=== PATIENT | female | born 1990 | race Caucasian/White ===

== ENCOUNTER 2020-04-21 14:09 | Emergency (ER) | payer BC, OTHER ==
[2020-04-21 14:15] VITALS: TEMP 97.3
[2020-04-21] MEDS ORDERED: SODIUM CHLORIDE 0.9% 1,000 ML IV STA (14:39)
[2020-04-21] MEDS ORDERED: MAG HYDROX/AL HYDROX/SIMETH 30 ML, HYOSCYAMINE ELIXIR 10 ML, LIDOCAINE VISCOUS 2% 10 ML PO STA ×3 (14:39)
[2020-04-21] MEDS ORDERED: PANTOPRAZOLE 40 MG/10 ML VIAL IVP STA (14:39)
--- NOTE | 2020-04-21 15:17 | ED ---
General Adult HPI - General Chief complaint: Chest Pain Stated complaint: chest pain, shortness of breath Time Seen by Provider: 04/21/20 14:20 Source: patient Mode of arrival: ambulatory Limitations: no limitations - History of Present Illness Initial comments: Patient is a 29-year-old female presenting to the emergency department with multiple complaints. Patient states that today while she was working she experience some blurry vision followed by a slight headache. During this time patient also described an episode of chest tightness, shaking that she believes is from anxiety. Patient states this chest tightness did become somewhat painful. She said this episode lasted approximately one hour. Patient has also been experiencing epigastric discomfort for the past 3 weeks. She does have a history of ulcers. She denies any other abdominal surgeries. She states she has been having intermittent diarrhea as well as increased pain after she eats food. She has had a few episodes of vomiting over the past 3 weeks. She describes the pain as epigastric, slightly to the right upper quadrant pain. She denies being at this time, is on BCP. She denies any fever, chills, shortness of breath. She denies history of blood clots, recent medication changes. She has no further complaints at this time. Upon arrival to the ER, patient is slightly tachycardia at 110, rest of vitals are normal. - Related Data Home Medications Medication Instructions Recorded Confirmed Cetirizine HCl [Zyrtec] 10 mg PO DAILY 04/21/20 04/21/20 Cider Vinegar [Apple Cider Vinegar] 300 mg PO DAILY 04/21/20 04/21/20 Mat Fe 1.5-30 1 tab PO DAILY 04/21/20 04/21/20 Multivitamins, Thera [Multivitamin 1 tab PO DAILY 04/21/20 04/21/20 (formulary)] Previous Rx's Medication Instructions Recorded Omeprazole 40 mg PO DAILY 30 Days #30 04/21/20 capsule. Allergies Allergy/AdvReac Type Severity Reaction Status Date / Time No Known Allergies Allergy Verified 04/21/20 15:05 Review of Systems ROS Statement: Those systems with pertinent positive or pertinent negative responses have been documented in the HPI. ROS Other: All systems not noted in ROS Statement are negative. Past Medical History Past Medical History: GERD/Reflux History of Any Multi-Drug Resistant Organisms: None Reported Past Surgical History: Orthopedic Surgery Additional Past Surgical History / Comment(s): rt wrist Past Psychological History: Anxiety Smoking Status: Never smoker Past Alcohol Use History: Rare Past Drug Use History: None Reported General Exam - General Exam Comments Initial Comments: GENERAL: Patient is well-developed and well-nourished. Patient is nontoxic and in no acute distress. HEAD: Atraumatic, normocephalic. EYES: Pupils equal round and reactive to light, extraocular movements intact, sclera anicteric, conjunctiva are normal. Eyelids were unremarkable. ENT: TMs normal, nares patent, oropharynx clear without exudates. Moist mucous membranes. NECK: Normal range of motion, supple without lymphadenopathy or JVD. LUNGS: Unlabored respirations. Breath sounds clear to auscultation bilaterally and equal. No wheezes rales or rhonchi. HEART: Regular rate and rhythm without murmurs, rubs or gallops. ABDOMEN: Epigastric tenderness to palpation, mild right upper quadrant tenderness. Soft, normoactive bowel sounds. No guarding, no rebound. No masses appreciated. : Deferred MUSCULOSKELETAL: Normal extremities with adequate strength and normal range of motion, no pitting or edema. No clubbing or cyanosis. NEUROLOGICAL: Patient is alert and oriented x 3. Motor and sensory are also intact. Cranial nerves II through XII grossly intact. Symmetrical smile. Normal speech, normal gait. PSYCH: Normal mood, normal affect. SKIN: Warm, Dry, normal turgor, no rashes or lesions noted. Limitations: no limitations Course Vital Signs 04/21/20 04/21/20 14:10 18:00 Temperature 97.3 F L 97.3 F L Pulse Rate 110 H 95 Respiratory 20 16 Rate Blood Pressure 147/88 127/68 O2 Sat by Pulse 99 99 Oximetry EKG Findings - EKG Comments: EKG Findings:: Sinus tachycardia otherwise a normal ECG, no signs of acute ischemia. Ventricular rate 102, AR interval 134, QT 354. Medical Decision Making - Medical Decision Making Patient is a 29-year-old female here with multiple complaints including an episode of chest tightness, shortness of breath that lasted approximately one hour as well as 3 weeks of intermittent epigastric, right upper quadrant pain. Patient was slightly tachycardia upon arrival, rest of vital signs were normal. On exam patient had some epigastric, right upper quadrant tenderness, rest of exam is unremarkable, no neural deficits. Lab work shows no acute abnormalities except for slight elevation in liver enzymes. Lipase was normal, lactic acid was normal. At that time I did order an ultrasound of the gallbladder which revealed no significant findings, no evidence of acute cholecystitis. Patient troponin and d-dimer were also normal. Urine showed no evidence of infection. Patient was given some fluids, Protonix as well as a GI cocktail and reported improvement in her symptoms. She has had no further chest complaints during her ER stay. I discussed with patient that her chest discomfort could've been related to an anxiety and tach, patient agrees with this. I do feel like her epigastric pain could be related to her gallbladder or possible ulcer. She does have a history of an ulcer. I will start patient on omeprazole 40 mg daily and will have her follow up with GI. I recommended Tylenol or Motrin for her mild headache. We did discuss limiting her up close computer usage for 1-2 days. Patient is in agreement with this plan of care and she stable for discharge. Return parameters were discussed with the patient she verbalized understanding. Case discussed with Dr. Pizarro. - Lab Data Result diagrams: 04/21/20 15:14 04/21/20 15:14 Lab Results 04/21/20 04/21/20 04/21/20 Range/Units 15:08 15:08 15:14 WBC 7.9 (3.8-10.6) k/uL RBC 4.82 (3.80-5.40) m/uL Hgb 14.7 (11.4-16.0) gm/dL Hct 43.5 (34.0-46.0) % MCV 90.4 (80.0-100.0) fL MCH 30.6 (25.0-35.0) pg MCHC 33.8 (31.0-37.0) g/dL RDW 12.6 (11.5-15.5) % Plt Count 318 (150-450) k/uL Neutrophils % 64 % Lymphocytes % 23 % Monocytes % 5 % Eosinophils % 5 % Basophils % 1 % Neutrophils # 5.1 (1.3-7.7) k/uL Lymphocytes # 1.8 (1.0-4.8) k/uL Monocytes # 0.4 (0-1.0) k/uL Eosinophils # 0.4 (0-0.7) k/uL Basophils # 0.1 (0-0.2) k/uL D-Dimer 0.46 (<0.60) mg/L FEU Sodium (137-145) mmol/L Potassium (3.5-5.1) mmol/L Chloride (98-107) mmol/L Carbon Dioxide (22-30) mmol/L Anion Gap mmol/L BUN (7-17) mg/dL Creatinine (0.52-1.04) mg/dL Est GFR (CKD-EPI)AfAm (>60 ml/min/1.73 sqM) Est GFR (CKD-EPI)NonAf (>60 ml/min/1.73 sqM) Glucose (74-99) mg/dL Plasma Lactic Acid Ga (0.7-2.0) mmol/L Calcium (8.4-10.2) mg/dL Total Bilirubin (0.2-1.3) mg/dL AST (14-36) U/L ALT (4-34) U/L Alkaline Phosphatase (38-126) U/L Troponin I <0.012 (0.000-0.034) ng/mL Total Protein (6.3-8.2) g/dL Albumin (3.5-5.0) g/dL Lipase (23-300) U/L Urine Color Urine Appearance (Clear) Urine pH (5.0-8.0) Ur Specific [place] (1.001-1.035) Urine Protein (Negative) Urine Glucose (UA) (Negative) Urine Ketones (Negative) Urine Blood (Negative) Urine Nitrite (Negative) Urine Bilirubin (Negative) Urine Urobilinogen (<2.0) mg/dL Ur Leukocyte Esterase (Negative) Urine RBC (0-5) /hpf Urine WBC (0-5) /hpf Ur Squamous Epith Cells (0-4) /hpf Urine Bacteria (None) /hpf Urine Mucus (None) /hpf Urine HCG, Qual (Not Detectd) 04/21/20 04/21/20 04/21/20 Range/Units 15:14 15:14 15:14 WBC (3.8-10.6) k/uL RBC (3.80-5.40) m/uL Hgb (11.4-16.0) gm/dL Hct (34.0-46.0) % MCV (80.0-100.0) fL MCH (25.0-35.0) pg MCHC (31.0-37.0) g/dL RDW (11.5-15.5) % Plt Count (150-450) k/uL Neutrophils % % Lymphocytes % % Monocytes % % Eosinophils % % Basophils % % Neutrophils # (1.3-7.7) k/uL Lymphocytes # (1.0-4.8) k/uL Monocytes # (0-1.0) k/uL Eosinophils # (0-0.7) k/uL Basophils # (0-0.2) k/uL D-Dimer (<0.60) mg/L FEU Sodium 136 L (137-145) mmol/L Potassium 4.0 (3.5-5.1) mmol/L Chloride 102 (98-107) mmol/L Carbon Dioxide 25 (22-30) mmol/L Anion Gap 9 mmol/L BUN 14 (7-17) mg/dL Creatinine 0.85 (0.52-1.04) mg/dL Est GFR (CKD-EPI)AfAm >90 (>60 ml/min/1.73 sqM) Est GFR (CKD-EPI)NonAf >90 (>60 ml/min/1.73 sqM) Glucose 112 H (74-99) mg/dL Plasma Lactic Acid Ga (0.7-2.0) mmol/L Calcium 10.0 (8.4-10.2) mg/dL Total Bilirubin 0.6 (0.2-1.3) mg/dL AST 49 H (14-36) U/L ALT 71 H (4-34) U/L Alkaline Phosphatase 84 (38-126) U/L Troponin I (0.000-0.034) ng/mL Total Protein 7.2 (6.3-8.2) g/dL Albumin 4.4 (3.5-5.0) g/dL Lipase 138 (23-300) U/L Urine Color Yellow Urine Appearance Cloudy H (Clear) Urine pH 5.5 (5.0-8.0) Ur Specific [place] 1.029 (1.001-1.035) Urine Protein Negative (Negative) Urine Glucose (UA) Negative (Negative) Urine Ketones Trace H (Negative) Urine Blood Negative (Negative) Urine Nitrite Negative (Negative) Urine Bilirubin Negative (Negative) Urine Urobilinogen <2.0 (<2.0) mg/dL Ur Leukocyte Esterase Negative (Negative) Urine RBC 1 (0-5) /hpf Urine WBC 2 (0-5) /hpf Ur Squamous Epith Cells 5 H (0-4) /hpf Urine Bacteria Rare H (None) /hpf Urine Mucus Many H (None) /hpf Urine HCG, Qual Not Detected (Not Detectd) 04/21/20 Range/Units 15:14 WBC (3.8-10.6) k/uL RBC (3.80-5.40) m/uL Hgb (11.4-16.0) gm/dL Hct (34.0-46.0) % MCV (80.0-100.0) fL MCH (25.0-35.0) pg MCHC (31.0-37.0) g/dL RDW (11.5-15.5) % Plt Count (150-450) k/uL Neutrophils % % Lymphocytes % % Monocytes % % Eosinophils % % Basophils % % Neutrophils # (1.3-7.7) k/uL Lymphocytes # (1.0-4.8) k/uL Monocytes # (0-1.0) k/uL Eosinophils # (0-0.7) k/uL Basophils # (0-0.2) k/uL D-Dimer (<0.60) mg/L FEU Sodium (137-145) mmol/L Potassium (3.5-5.1) mmol/L Chloride (98-107) mmol/L Carbon Dioxide (22-30) mmol/L Anion Gap mmol/L BUN (7-17) mg/dL Creatinine (0.52-1.04) mg/dL Est GFR (CKD-EPI)AfAm (>60 ml/min/1.73 sqM) Est GFR (CKD-EPI)NonAf (>60 ml/min/1.73 sqM) Glucose (74-99) mg/dL Plasma Lactic Acid Ga 1.0 (0.7-2.0) mmol/L Calcium (8.4-10.2) mg/dL Total Bilirubin (0.2-1.3) mg/dL AST (14-36) U/L ALT (4-34) U/L Alkaline Phosphatase (38-126) U/L Troponin I (0.000-0.034) ng/mL Total Protein (6.3-8.2) g/dL Albumin (3.5-5.0) g/dL Lipase (23-300) U/L Urine Color Urine Appearance (Clear) Urine pH (5.0-8.0) Ur Specific [place] (1.001-1.035) Urine Protein (Negative) Urine Glucose (UA) (Negative) Urine Ketones (Negative) Urine Blood (Negative) Urine Nitrite (Negative) Urine Bilirubin (Negative) Urine Urobilinogen (<2.0) mg/dL Ur Leukocyte Esterase (Negative) Urine RBC (0-5) /hpf Urine WBC (0-5) /hpf Ur Squamous Epith Cells (0-4) /hpf Urine Bacteria (None) /hpf Urine Mucus (None) /hpf Urine HCG, Qual (Not Detectd) Disposition Clinical Impression: Anxiety, Epigastric abdominal pain, GERD (gastroesophageal reflux disease) Disposition: HOME SELF-CARE Condition: Stable Instructions (If sedation given, give patient instructions): Gastritis (ED) Additional Instructions: Please return to the Emergency Department if symptoms worsen or any other concerns. Recommend taking omeprazole daily for 2-4 weeks. Follow-up with PCP and/or GI specialist. Prescriptions: Omeprazole 40 mg PO DAILY 30 Days #30 capsule.dr Is patient prescribed a controlled substance at d/c from ED?: No Referrals: Lucrecia Titus MD [Primary Care Provider] - 1-2 days Hollie Culver MD [STAFF PHYSICIAN] - 1-2 days
[2020-04-21 15:29] LABS: Basophils # (A) 0.1 k/uL (0-0.2); Basophils % (A) 1 %; Eosinophils # (A) 0.4 k/uL (0-0.7); Eosinophils % (A) 5 %; HCT 43.5 % (34.0-46.0); HGB 14.7 gm/dL (11.4-16.0); Lymphocytes # (A) 1.8 k/uL (1.0-4.8); Lymphocytes % (A) 23 %; MCH 30.6 pg (25.0-35.0); MCHC 33.8 g/dL (31.0-37.0); MCV 90.4 fL (80.0-100.0); Mean Platelet Volume 7.5; Monocytes # (A) 0.4 k/uL (0-1.0); Monocytes % (A) 5 %; Neutrophils # (A) 5.1 k/uL (1.3-7.7); Neutrophils % (A) 64 %; Platelet Count 318 k/uL (150-450); RBC 4.82 m/uL (3.80-5.40); RDW 12.6 % (11.5-15.5); WBC 7.9 k/uL (3.8-10.6)
--- NOTE | 2020-04-21 15:37 | XR ---
EXAMINATION TYPE: XR chest 2V DATE OF EXAM: 04/21/2020 COMPARISON: NONE HISTORY: Intermittent chest pain and heaviness. TECHNIQUE: Frontal and lateral views of the chest are obtained. FINDINGS: There is no focal air space opacity, pleural effusion, or pneumothorax seen. The cardiac silhouette size is within normal limits. The osseous structures are intact. IMPRESSION: No acute cardiopulmonary process.
[2020-04-21 15:45] LABS: ALT 71 U/L (4-34); AST 49 U/L (14-36); African American GFR (CKD) >90 (>60 ml/min/1.73 sqM); Albumin 4.4 g/dL (3.5-5.0); Alkaline Phosphatase 84 U/L (38-126); Anion Gap 9 mmol/L; Blood Urea Nitrogen 14 mg/dL (7-17); Carbon Dioxide 25 mmol/L (22-30); Chloride 102 mmol/L (98-107); Glucose 112 mg/dL (74-99); Non-African American GFR(CKD) >90 (>60 ml/min/1.73 sqM); Sodium 136 mmol/L (137-145); Total Bilirubin 0.6 mg/dL (0.2-1.3); Total Protein 7.2 g/dL (6.3-8.2)
[2020-04-21 15:47] LABS: Appearance,Urine Cloudy (Clear); Bacteria,Urine Rare /hpf; Bilirubin,Urine Negative (Negative); Blood,Urine Negative (Negative); Color,Urine Yellow; Glucose,Urine (UA) Negative (Negative); Ketones,Urine Trace (Negative); Leukocyte Esterase,Urine Negative (Negative); Mucus,Urine Many /hpf; Nitrite,Urine Negative (Negative); PH, Urine 5.5 (5.0-8.0); Protein,Urine Negative (Negative); RBC,Urine 1 /hpf (0-5); Specific Gravity,Urine 1.029 (1.001-1.035); Squamous Epithelial Cell,Urine 5 /hpf (0-4); Urobilinogen,Urine <2.0 mg/dL (<2.0); WBC,Urine 2 /hpf (0-5)
--- NOTE | 2020-04-21 17:00 | US ---
EXAMINATION TYPE: US gallbladder DATE OF EXAM: 04/21/2020 COMPARISON: NONE CLINICAL HISTORY: epigastric. RUQ pain. abd pain EXAM MEASUREMENTS: Liver Length: 13.6 cm Gallbladder Wall: 0.3 cm CBD: 0.5 cm Right Kidney: 10.3 x 4.4 x 4.1 cm Note: Patient ate lunch. Pancreas: wnl Liver: wnl Gallbladder: wall appears borderline thick but patient NPO 4hrs. Evidence for sonographic Gonzalez's sign: no CBD: wnl Right Kidney: wnl IMPRESSION: No acute sonographic process.
[2020-04-21 18:00] VITALS: BP 127/68; PULSE 95; RESP 16
== END 2020-04-21 18:19 | disposition home or self-care (01) ==
LOC: EC 14:09
DX: K21.9 Gastro-esophageal reflux disease without esophagitis (principal); F41.9 Anxiety disorder, unspecified; R74.8 Abnormal levels of other serum enzymes; R07.89 Other chest pain; R06.02 Shortness of breath; R10.11 Right upper quadrant pain; R19.7 Diarrhea, unspecified; R11.10 Vomiting, unspecified; R25.1 Tremor, unspecified; R51 Headache; Z79.899 Other long term (current) drug therapy; Z79.3 Long term (current) use of hormonal contraceptives
CPT/HCPCS: 36415; 93005; 85379; 80053; 83605; 83690; 84484; 85025; 81001; 81025; 71046; 76705; 96374; 96361; 99285; C9113

== ENCOUNTER 2022-08-29 09:03 | Day surgery (SDC) | payer BC ==
[2022-08-24 12:19] VITALS: BMI 41.1
[~2022-08-29 09:03] MED LIST: ACETAMINOPHEN TAB 500 MG TAB PO PRN; DEXAMETHASONE SOD PHOSPHATE 4 MG/ML 1 ML VIAL IV ONE; HEPARIN SODIUM,PORCINE/PF 5,000 UNIT/0.5 ML SYRINGE SQ PRN; HYDROmorphone 0.5 MG/0.5 ML SYRINGE IVP PRN; LACTATED RINGERS 1,000 ML IV SCH; LIDOCAINE 1% (10MG/ML) FOR IV START INTRADERMA PRN; MIDAZOLAM 2 MG/2 ML VIAL IV PRN; ONDANSETRON 4 MG/2 ML VIAL IVP ONE
--- NOTE | 2022-08-29 09:45 | P.GSHP ---
History of Present Illness H&P Date: 08/29/22 Chief Complaint: Right upper quadrant pain [id number] female who presents today for laparoscopically cholecystectomy. Patient's liquids were quadrant pain. Her recent ultrasound shows and the gallbladder consistent with chronic cholecystitis. Past Medical History Past Medical History: GERD/Reflux Additional Past Medical History / Comment(s): Hx Asthma as a child, Hx stomach ulcers ., gall bladder pain and diarrhea. History of Any Multi-Drug Resistant Organisms: None Reported Past Surgical History: Orthopedic Surgery Additional Past Surgical History / Comment(s): rt wrist surgery with hardware and removal, egd. Past Anesthesia/Blood Transfusion Reactions: Motion Sickness Additional Past Anesthesia/Blood Transfusion Reaction / Comment(s): "Woke up too early." Past Psychological History: No Psychological Hx Reported Smoking Status: Never smoker Past Alcohol Use History: Occasional Past Drug Use History: None Reported - Past Family History Mother Family Medical History: No Reported History Medications and Allergies Home Medications Medication Instructions Recorded Confirmed Type Cetirizine HCl [Zyrtec] 10 mg PO DAILY 04/21/20 08/29/22 History Drospirenone [Slynd] 4 mg PO QAM 08/24/22 08/29/22 History Allergies Allergy/AdvReac Type Severity Reaction Status Date / Time cat dander Allergy Unknown Unknown Verified 08/29/22 09:30 bacitracin Allergy Rash/Hives Verified 08/29/22 09:30 [From Neosporin ([id number])] neomycin Allergy Rash/Hives Verified 08/29/22 09:30 [From Neosporin ([id number])] polymyxin B Allergy Rash/Hives Verified 08/29/22 09:30 [From Neosporin ([id number])] adhesive AdvReac Unknown rash, Verified 08/29/22 09:30 tears skin Surgical - Exam Vital Signs Temp Pulse Resp BP Pulse Ox 98.3 F 108 H 18 123/70 98 08/29/22 09:36 08/29/22 09:36 08/29/22 09:36 08/29/22 09:36 08/29/22 09:36 - General well developed, well nourished, no distress - Eyes PERRL - ENT normal pinna - Neck no masses - Respiratory normal expansion - Cardiovascular Rhythm: regular - Abdomen Abdomen: soft, non tender Assessment and Plan Assessment: Right upper quadrant pain Chronic cholecystitis We'll perform laparoscopic cholecystectomy
[2022-08-29] MEDS ORDERED: SCOPOLAMINE 1 MG/72 HR PATCH TRANSDERM ONE (09:50)
[2022-08-29] MEDS ORDERED: HYDROmorphone (PF) 1 MG/ML ONE (09:55)
[2022-08-29] MEDS ORDERED: ROCURONIUM 10 MG/ML (5 ML VIAL) IV ONE (09:55)
[2022-08-29] MEDS ORDERED: PROPOFOL 10 MG/ML 20 ML VIAL IV ONE (09:55)
[2022-08-29] MEDS ORDERED: MIDAZOLAM 2 MG/2 ML VIAL ONE (09:55)
[2022-08-29] MEDS ORDERED: NEOSTIGMINE 1 MG/ML 10 ML VIAL ONE (09:55)
[2022-08-29] MEDS ORDERED: LIDOCAINE 2% INJ 20 MG/ML (2 ML VIAL) ONE (09:55)
[2022-08-29] MEDS ORDERED: fentaNYL (PF) 50 MCG/ML 2 ML AMP ONE (09:55)
[2022-08-29] MEDS ORDERED: SUCCINYLCHOLINE CHLORIDE 200 MG/10 ML VIAL IV ONE (09:55)
[2022-08-29] MEDS ORDERED: GLYCOPYRROLATE 0.2 MG/ML 2 ML VIAL ONE (09:55)
[2022-08-29] MEDS ORDERED: KETOROLAC 15 MG/ML 1 ML VIAL ONE (09:55)
[2022-08-29] MEDS ORDERED: BUPIVACAIN-EPI 0.25%-1:200,000 30 ML VIAL SQ ONE (10:15)
--- NOTE | 2022-08-29 10:41 | P.OP ---
Date of Procedure: 08/29/22 Preoperative Diagnosis: Chronic cholecystitis Postoperative Diagnosis: Chronic cholecystitis Procedure(s) Performed: Laparoscopic cholecystectomy Anesthesia: ELSIE Surgeon: Naman Rees Estimated Blood Loss (ml): 5 Pathology: other (Gallbladder) Condition: stable Disposition: PACU Description of Procedure: The patient was placed on the operating table. The patient received a general endotracheal tube anesthesia. The patients abdomen was prepped and draped in the usual sterile fashion. Through an infraumbilical stab incision, the fascia of the anterior abdominal wall was grasped with a pair of Kochers and then the Veress needle was placed in the peritoneal cavity. Position of the Veress needle was confirmed with positive drop test. The abdomen was then insufflated. After adequate insufflation, the 10 mm trocar was placed in the peritoneal cavity. Following this the laparoscope was placed in the peritoneal cavity. The patient was placed in the head-up, right side up position and then a 5 mm trocar was placed in the right lateral and right subcostal position under direct visualization. A 8 mm trocar was placed in the epigastric position. The gallbladder was grasped in the fundus and infundibulum. Traction on the gallbladder was placed in the lateral and the cephalad positions. The triangle of Calot was visualized.. The cystic duct was bluntly dissected until the union of the cystic duct and common bile duct was seen. A critical view of safety was achieved. The cystic duct was then divided and sealed with the Harmonic scissors. A PDS Endoloop was then placed throughout the cystic duct stump. The cystic artery divided and sealed with the Harmonic scissors. The gallbladder was then removed from the liver bed using Harmonic scissors. The gallbladder was then extracted through the epigastric port site. Operative field was checked for any bleeding spots and Harmonic scissors was used to coagulate the liver bed. The abdomen was irrigated. The trocars were removed. The skin was closed using interrupted 3-0 Vicryl suture. Dermabond dressing were applied. The patient tolerated the procedure well.
[2022-08-29 11:14] VITALS: TEMP 97.3
[2022-08-29] MEDS ORDERED: LACTATED RINGERS 1,000 ML IV ONE (11:15)
[2022-08-29 13:40] VITALS: RESP 18
[2022-08-29 14:36] VITALS: BP 101/71; PULSE 70
== END 2022-08-29 14:37 | disposition home or self-care (01) ==
LOC: OR 09:03
PROVIDERS: ATTEND Surgery
DX: K81.1 Chronic cholecystitis (principal); K21.9 Gastro-esophageal reflux disease without esophagitis; F10.90 Alcohol use, unspecified, uncomplicated; F17.200 Nicotine dependence, unspecified, uncomplicated; Z98.890 Other specified postprocedural states; Z87.09 Personal history of other diseases of the respiratory system; Z87.11 Personal history of peptic ulcer disease; T75.3XXD Motion sickness, subsequent encounter; Z79.899 Other long term (current) drug therapy; Z88.1 Allergy status to other antibiotic agents; Z91.048 Other nonmedicinal substance allergy status
CPT/HCPCS: 47562; 81025; J2250; J0330; J1100; J2710; J0690; J2405; J3010; J1170 ×2; J1885; J2704; J1790; J1644; J2001; 88304

== ENCOUNTER 2023-01-08 08:52 | Observation (INO) | payer BC ==
[2023-01-08] MEDS ORDERED: ACETAMINOPHEN TAB 500 MG TAB PO STA (09:43)
[2023-01-08] MEDS ORDERED: IBUPROFEN 600 MG TAB PO STA (09:43)
[2023-01-08] MEDS ORDERED: SODIUM CHLORIDE 0.9% 1,000 ML IV ONE (09:48)
--- NOTE | 2023-01-08 09:48 | ED ---
General Adult HPI - General Chief complaint: Arrhythmia/Palpitations Stated complaint: LIZBETH chest pain Time Seen by Provider: 01/08/23 09:15 Source: patient, RN notes reviewed, old records reviewed Mode of arrival: ambulatory Limitations: no limitations - History of Present Illness Initial comments: This is a 32-year-old female who presents emergency Department complaining that she woke up about 3 AM with some pressure in her chest which was worse with deep breathing. Patient states she had the chills but she is no longer chill. Patient states she has an occasional cough but nothing significant. Patient states she doesn't feel short of breath just feels like she has to take a deep breath. Patient also has a mild headache. Patient denies any abdominal pain patient denies nausea vomiting. Patient denies any swelling to the legs or calf tenderness. Patient states she is on control. - Related Data Home Medications Medication Instructions Recorded Confirmed Cetirizine HCl [Zyrtec] 10 mg PO DAILY 04/21/20 01/08/23 norethindrone-e.estradioL-iron 1 tab PO DAILY 01/08/23 01/08/23 [Mat Fe 1.5-30 Tablet] Allergies Allergy/AdvReac Type Severity Reaction Status Date / Time cat dander Allergy Unknown Unknown Verified 01/08/23 09:48 bacitracin Allergy Rash/Hives Verified 01/08/23 09:48 [From Neosporin ([id number])] neomycin Allergy Rash/Hives Verified 01/08/23 09:48 [From Neosporin ([id number])] polymyxin B Allergy Rash/Hives Verified 01/08/23 09:48 [From Neosporin ([id number])] adhesive AdvReac Unknown rash, Verified 01/08/23 09:48 tears skin Review of Systems ROS Statement: Those systems with pertinent positive or pertinent negative responses have been documented in the HPI. ROS Other: All systems not noted in ROS Statement are negative. Past Medical History Past Medical History: GERD/Reflux Additional Past Medical History / Comment(s): Hx Asthma as a child, Hx stomach ulcers ., gall bladder pain and diarrhea. History of Any Multi-Drug Resistant Organisms: None Reported Past Surgical History: Cholecystectomy, Orthopedic Surgery Additional Past Surgical History / Comment(s): rt wrist surgery with hardware and removal, egd. Past Anesthesia/Blood Transfusion Reactions: Motion Sickness Additional Past Anesthesia/Blood Transfusion Reaction / Comment(s): "Woke up too early." Past Psychological History: No Psychological Hx Reported Smoking Status: Never smoker Past Alcohol Use History: Occasional Past Drug Use History: None Reported - Past Family History Mother Family Medical History: No Reported History General Exam - General Exam Comments Initial Comments: GENERAL: Patient is well-developed and well-nourished. Patient is nontoxic and well- hydrated and is in no acute distress. Patient felt warm temp orally was 99.9 ENT: Neck is soft and supple. No significant lymphadenopathy is noted. Oropharynx is clear. Moist mucous membranes. Neck has full range of motion without eliciting any pain. EYES: The sclera were anicteric and conjunctiva were pink and moist. Extraocular movements were intact and pupils were equal round and reactive to light. Eyelids were unremarkable. PULMONARY: Unlabored respirations. Good breath sounds bilaterally. No audible rales rhonchi or wheezing was noted. CARDIOVASCULAR: Patient is tachycardic at about 125 beats a minute ABDOMEN: Soft and nontender with normal bowel sounds. SKIN: Skin is clear with no lesions or rashes and otherwise unremarkable. NEUROLOGIC: Patient is alert and oriented x3. Cranial nerves II through XII are grossly intact. Motor and sensory are also intact. Normal speech, volume and content. Symmetrical smile. MUSCULOSKELETAL: Normal extremities with adequate strength and full range of motion. No lower extremity swelling or edema. No calf tenderness. LYMPHATICS: No significant lymphadenopathy is noted PSYCHIATRIC: Normal psychiatric evaluation. Limitations: no limitations Course Vital Signs 01/08/23 01/08/23 01/08/23 08:59 10:00 12:16 Temperature 98.3 F 98.3 F Pulse Rate 140 H 123 H 101 H Respiratory 18 18 18 Rate Blood Pressure 123/84 114/98 117/75 O2 Sat by Pulse 98 97 97 Oximetry 01/08/23 01/08/23 13:16 13:17 Temperature Pulse Rate 133 H 105 H Respiratory Rate Blood Pressure O2 Sat by Pulse 97 Oximetry Medical Decision Making - Medical Decision Making EKG as interpreted by myself shows sinus tachycardia at 126 bpm IA interval 144 QRS is 84 QT interval 360 QTC is 391. Patient's EKG shows no ST segment elevation or depression. Was pt. sent in by a medical professional or institution (, PA, IAP DISPLAYS ANALYST, urgent care, hospital, or senior care...) When possible be specific @ -No Did you speak to anyone other than the patient for history (EMS, parent, family, police, friend...)? What history was obtained from this source @ -No Did you review nursing and triage notes (agree or disagree)? Why? @ -I reviewed and agree with nursing and triage notes Were old charts reviewed (outside hosp., previous admission, EMS record, old EKG, old radiological studies, urgent care reports/EKG's, senior care records)? Report findings @ -No old charts were reviewed Differential Diagnosis (chest pain, altered mental status, abdominal pain women, abdominal pain men, vaginal bleeding, weakness, fever, dyspnea, syncope, headache, dizziness, GI bleed, back pain, seizure, CVA, palpatations, mental health, musculoskeletal)? @ -Differential Palpitations Ventricular arrhythmias, atrial arrhythmias, myocardial infarction, anemia, thyrotoxicosis, electrolyte imbalance, hypokalemia, pulmonary embolism, pulmonary disease, drugs, alcohol, anxiety, stress.... This is not meant to be an all-inclusive list. EKG interpreted by me (3pts min.). @ -As above X-rays interpreted by me (1pt min.). @ -Chest x-ray was interpreted by myself shows no acute abnormality. CT interpreted by me (1pt min.). @ -CT of the chest was interpreted by myself shows no obvious PE U/S interpreted by me (1pt. min.). @ -None done What testing was considered but not performed or refused? (CT, X-rays, U/S, labs)? Why? @ -None What meds were considered but not given or refused? Why? @ -None Did you discuss the management of the patient with other professionals (professionals i.e. , PA, IAP DISPLAYS ANALYST, lab, RT, psych nurse, delinquency prevention social worker, radiographer mammographer, teacher, air crew officer, case picker)? Give summary @ -Or he agreed to admit the patient admitted the patient wrote admitting orders Was smoking cessation discussed for >3mins.? @ -No Was critical care preformed (if so, how long)? @ -No Were there social determinants of health that impacted care today? How? (Homelessness, low income, unemployed, alcoholism, drug addiction, transportation, low edu. Level, literacy, decrease access to med. care, group home, rehab)? @ -No Was there de-escalation of care discussed even if they declined (Discuss DNR or withdrawal of care, Hospice)? DNR status @ -No What co-morbidities impacted this encounter? (DM, HTN, Smoking, COPD, CAD, Can cer, CVA, ARF, Chemo, Hep., AIDS, mental health diagnosis, sleep apnea, morbid obesity)? @ -None Was patient admitted / discharged? Hospital course, mention meds given and route, prescriptions, significant lab abnormalities, going to OR and other pertinent info. @ -Patient had a CAT scan and chest x-ray showed no acute abnormality. Patient had elevated white count but no source of infection. Patient remained tachycardic even after her temperature came down back to normal. Patient got up and ambulate down the swann and back and heart rate was 135 beats a minute. Patient continued to feel some chest discomfort I spoke with Dr. Orantes he agreed to admit the patient admitted the patient I consult cardiology Undiagnosed new problem with uncertain prognosis? @ -No Drug Therapy requiring intensive monitoring for toxicity (Heparin, Nitro, Insulin, Cardizem)? @ -No Were any procedures done? @ -No Diagnosis/symptom? @ -Tachycardia Acute, or Chronic, or Acute on Chronic? @ -Acute Uncomplicated (without systemic symptoms) or Complicated (systemic symptoms)? @ -Complicated Side effects of treatment? @ -No Exacerbation, Progression, or Severe Exacerbation? @ -No Poses a threat to life or bodily function? How? (Chest pain, [place], [place], pneumonia, PE, COPD, DKA, ARF, appy, cholecystitis, CVA, Diverticulitis, Homicidal, Suicidal, threat to staff... and all critical care pts) @ -This could lead to poor perfusion and eventually end organ dysfunction - Lab Data Result diagrams: 01/08/23 10:17 01/08/23 10:17 Lab Results 01/08/23 01/08/23 01/08/23 Range/Units 10:17 10:17 10:17 WBC 16.7 H (3.8-10.6) k/uL RBC 4.74 (3.80-5.40) m/uL Hgb 14.6 (11.4-16.0) gm/dL Hct 44.2 (34.0-46.0) % MCV 93.2 (80.0-100.0) fL MCH 30.8 (25.0-35.0) pg MCHC 33.0 (31.0-37.0) g/dL RDW 12.8 (11.5-15.5) % Plt Count 286 (150-450) k/uL MPV 8.1 Neutrophils % 89 % Lymphocytes % 6 % Monocytes % 4 % Eosinophils % 1 % Basophils % 0 % Neutrophils # 14.9 H (1.3-7.7) k/uL Lymphocytes # 1.0 (1.0-4.8) k/uL Monocytes # 0.6 (0-1.0) k/uL Eosinophils # 0.1 (0-0.7) k/uL Basophils # 0.0 (0-0.2) k/uL PT 9.3 (9.0-12.0) sec INR 0.9 (<1.2) APTT 20.8 L (22.0-30.0) sec D-Dimer 1.25 H (<0.60) mg/L FEU Sodium 137 (137-145) mmol/L Potassium 4.0 (3.5-5.1) mmol/L Chloride 103 (98-107) mmol/L Carbon Dioxide 23 (22-30) mmol/L Anion Gap 11 mmol/L BUN 13 (7-17) mg/dL Creatinine 0.84 (0.52-1.04) mg/dL Est GFR (CKD-EPI)AfAm >90 (>60 ml/min/1.73 sqM) Est GFR (CKD-EPI)NonAf >90 (>60 ml/min/1.73 sqM) Glucose 102 H (74-99) mg/dL Calcium 9.0 (8.4-10.2) mg/dL Magnesium 1.8 (1.6-2.3) mg/dL Total Bilirubin 1.0 (0.2-1.3) mg/dL AST 27 (14-36) U/L ALT 29 (4-34) U/L Alkaline Phosphatase 69 (38-126) U/L Troponin I (0.000-0.034) ng/mL Total Protein 7.0 (6.3-8.2) g/dL Albumin 4.2 (3.5-5.0) g/dL TSH 1.520 (0.465-4.680) mIU/L HCG, Qual Not Detected Influenza Type A (PCR) (Not Detectd) Influenza Type B (PCR) (Not Detectd) RSV (PCR) (Not Detectd) SARS-CoV-2 (PCR) (Not Detectd) 01/08/23 01/08/23 Range/Units 10:17 10:17 WBC (3.8-10.6) k/uL RBC (3.80-5.40) m/uL Hgb (11.4-16.0) gm/dL Hct (34.0-46.0) % MCV (80.0-100.0) fL MCH (25.0-35.0) pg MCHC (31.0-37.0) g/dL RDW (11.5-15.5) % Plt Count (150-450) k/uL MPV Neutrophils % % Lymphocytes % % Monocytes % % Eosinophils % % Basophils % % Neutrophils # (1.3-7.7) k/uL Lymphocytes # (1.0-4.8) k/uL Monocytes # (0-1.0) k/uL Eosinophils # (0-0.7) k/uL Basophils # (0-0.2) k/uL PT (9.0-12.0) sec INR (<1.2) APTT (22.0-30.0) sec D-Dimer (<0.60) mg/L FEU Sodium (137-145) mmol/L Potassium (3.5-5.1) mmol/L Chloride (98-107) mmol/L Carbon Dioxide (22-30) mmol/L Anion Gap mmol/L BUN (7-17) mg/dL Creatinine (0.52-1.04) mg/dL Est GFR (CKD-EPI)AfAm (>60 ml/min/1.73 sqM) Est GFR (CKD-EPI)NonAf (>60 ml/min/1.73 sqM) Glucose (74-99) mg/dL Calcium (8.4-10.2) mg/dL Magnesium (1.6-2.3) mg/dL Total Bilirubin (0.2-1.3) mg/dL AST (14-36) U/L ALT (4-34) U/L Alkaline Phosphatase (38-126) U/L Troponin I <0.012 (0.000-0.034) ng/mL Total Protein (6.3-8.2) g/dL Albumin (3.5-5.0) g/dL TSH (0.465-4.680) mIU/L HCG, Qual Influenza Type A (PCR) Not Detected (Not Detectd) Influenza Type B (PCR) Not Detected (Not Detectd) RSV (PCR) Not Detected (Not Detectd) SARS-CoV-2 (PCR) Not Detected (Not Detectd) Disposition Clinical Impression: Tachycardia Disposition: ADMITTED IP TO THIS HOSP Referrals: Lucrecia Titus MD [Primary Care Provider] - 1-2 days Time of Disposition: 14:07
--- NOTE | 2023-01-08 10:23 | XR ---
EXAMINATION TYPE: XR chest 2V DATE OF EXAM: 01/08/2023 COMPARISON: 04/21/2020 TECHNIQUE: PA and lateral views submitted. HISTORY: Chest pain FINDINGS: The lungs are clear and there is no pneumothorax, pleural effusion, or focal pneumonia. Heart size normal and no overt failure. Osseous structures demonstrate hypertrophic and degenerative changes of the spine. IMPRESSION: 1. No acute process.
[2023-01-08 10:32] LABS: Basophils % (A) 0 %; Eosinophils # (A) 0.1 k/uL (0-0.7); Eosinophils % (A) 1 %; HCT 44.2 % (34.0-46.0); HGB 14.6 gm/dL (11.4-16.0); Lymphocytes % (A) 6 %; MCH 30.8 pg (25.0-35.0); MCV 93.2 fL (80.0-100.0); Mean Platelet Volume 8.1; Monocytes # (A) 0.6 k/uL (0-1.0); Monocytes % (A) 4 %; Neutrophils # (A) 14.9 k/uL (1.3-7.7); Neutrophils % (A) 89 %; Platelet Count 286 k/uL (150-450); RBC 4.74 m/uL (3.80-5.40); RDW 12.8 % (11.5-15.5); WBC 16.7 k/uL (3.8-10.6)
[2023-01-08 10:50] LABS: ALT 29 U/L (4-34); AST 27 U/L (14-36); African American GFR (CKD) >90 (>60 ml/min/1.73 sqM); Albumin 4.2 g/dL (3.5-5.0); Alkaline Phosphatase 69 U/L (38-126); Anion Gap 11 mmol/L; Blood Urea Nitrogen 13 mg/dL (7-17); Carbon Dioxide 23 mmol/L (22-30); Chloride 103 mmol/L (98-107); Glucose 102 mg/dL (74-99); Magnesium 1.8 mg/dL (1.6-2.3); Non-African American GFR(CKD) >90 (>60 ml/min/1.73 sqM); Sodium 137 mmol/L (137-145)
[2023-01-08 10:59] LABS: HCG,Qualitative Serum Not Detected; INR 0.9 (<1.2); Partial Thromboplastin Time 20.8 sec (22.0-30.0); Prothrombin Time 9.3 sec (9.0-12.0)
--- NOTE | 2023-01-08 12:18 | CT ---
EXAMINATION TYPE: CT chest angio for PE DATE OF EXAM: 01/08/2023 COMPARISON: Radiograph same day. HISTORY: 32-year-old female shortness of breath, elevated d-dimer TECHNIQUE: Contiguous axial scanning of the chest performed with IV Contrast, patient injected with 1 00 mL of Isovue 370. Coronal/sagittal MIP reconstructions performed. CT DLP: 483.6 mGycm Automated exposure control for dose reduction was used. FINDINGS: Heart normal size without pericardial effusion. No flattening of the interventricular septum reflux o f contrast into the hepatic veins. Aorta normal caliber with conventional arch vessel branching anatomy. No thoracic lymphadenopathy by CT size criteria. There is suboptimal opacification of the pulmonary arterial system with a attenuation of only 141 Maribeth nsfield units. No obvious large central pulmonary embolus. Many of the lobar, segmental, and more dis thad branches are essentially nondiagnostic for assessment of emboli. No consolidation or pleural effusion. There is a tiny hiatal hernia. Otherwise, visualized upper abdomen shows no gross abnormal body. Bones: No osseous destructive process. IMPRESSION: SUBOPTIMAL EXAM FOR ASSESSMENT OF PULMONARY EMBOLI. NO DEFINITE LARGE CENTRAL PULMONARY EMBOLUS. LOBA R, SEGMENTAL, AND MORE DISTAL ARTERIAL BRANCHES ARE VERY LIMITED OR NONDIAGNOSTIC. NO ACUTE PULMONARY PROCESS. TINY HIATAL HERNIA.
[2023-01-08] MEDS ORDERED: NITROGLYCERIN SL TABS 0.4 MG TAB SUBLINGUAL PRN (14:08)
[2023-01-08 14:14] LABS: Appearance,Urine Cloudy (Clear); Bacteria,Urine Few /hpf; Bilirubin,Urine Negative (Negative); Blood,Urine Negative (Negative); Color,Urine Yellow; Glucose,Urine (UA) Negative (Negative); Ketones,Urine Trace (Negative); Leukocyte Esterase,Urine Moderate (Negative); Mucus,Urine Occasional /hpf; Nitrite,Urine Negative (Negative); PH, Urine 5.5 (5.0-8.0); Protein,Urine Negative (Negative); RBC,Urine 4 /hpf (0-5); Specific Gravity,Urine 1.021 (1.001-1.035); Squamous Epithelial Cell,Urine 13 /hpf (0-4); Urobilinogen,Urine <2.0 mg/dL (<2.0); WBC,Urine 7 /hpf (0-5)
[2023-01-08] MEDS ORDERED: ALPRAZolam 0.25 MG TAB PO PRN (14:42)
[2023-01-08 14:56] LABS: Amphetamine Screen,Urine Not Detected (NotDetected); Barbiturate Screen,Urine Not Detected (NotDetected); Benzodiazepines Screen,Urine Not Detected (NotDetected); Cocaine Screen,Urine Not Detected (NotDetected); Methadone Screen, Urine Not Detected (NotDetected); Opiate Screen,Urine Not Detected (NotDetected); Oxycodone Screen, Urine Not Detected (NotDetected); Phencyclidine Screen,Urine Not Detected (NotDetected); Tricyclic Antidepressant,Urine Not Detected (NotDetected); Urn Cannabinoid Scrn Not Detected (NotDetected)
[2023-01-08] MEDS: HEPARIN SODIUM,PORCINE/PF 5,000 UNIT/0.5 ML SYRINGE SQ SCH ×2 (15:18→20:25)
[2023-01-08] MEDS: NITROGLYCERIN OINT 1 INCH/GM PACKET TOPICAL SCH ×2 (17:33→23:06)
--- NOTE | 2023-01-08 19:51 | P.CONS ---
History of Present Illness - Reason for Consult Consult date: 01/08/23 Sepsis Requesting physician: Alex Orantes - Chief Complaint Shortness of breath and chest pain x one day - History of Present Illness Patient is a 32-year-old female with a past medical history significant for asthma as a child history of GERD reflux patient is on control pills presenting to the ER this morning after pain the patient woke up around 3 with a pressure in her chest worse with a deep breathing symptoms started suddenly and progressively get worse pulmonary to come to the hospital before the patient went to bed he did not have any symptoms patient did have some nausea but no vomiting has been complaining of some headache but no other URI symptoms no significant cough or sputum production no abdominal pain or any diarrhea with the symptom the patient has been evaluated by the ER physician on arrival to the ER the patient was afebrile subsequently did have a low-grade fever of 99.9 F patient was tachycardic not hypoxic or need for supplemental oxygen hematocrit 16.7 with a left shift D-dimer some elevated 1.25 kidney function was normal electrolytes were normal liver enzymes are normal did have a positive UA urine drug screen was negative influenza RSV and COVID testing was negative patient did have a chest x-ray no acute process also have a CT angiogram of the chest that was suboptimal for pulmonary emboli no definite large central embolus no acute pulmonary process that time he had an hernia patient was started on Rocephin infectious disease was consulted for further management of antibiotic therapy Review of Systems Positive point and negatives has been mentioned in the HPI, complete review of systems was performed and all other systems are negative Past Medical History Past Medical History: GERD/Reflux Additional Past Medical History / Comment(s): Hx Asthma as a child, Hx stomach ulcers ., gall bladder pain and diarrhea. History of Any Multi-Drug Resistant Organisms: None Reported Past Surgical History: Cholecystectomy, Orthopedic Surgery Additional Past Surgical History / Comment(s): rt wrist surgery with hardware and removal, egd. Past Anesthesia/Blood Transfusion Reactions: Motion Sickness Additional Past Anesthesia/Blood Transfusion Reaction / Comm: "Woke up too early." Past Psychological History: No Psychological Hx Reported Smoking Status: Never smoker Past Alcohol Use History: Occasional Past Drug Use History: None Reported - Past Family History Mother Family Medical History: No Reported History Medications and Allergies Home Medications Medication Instructions Recorded Confirmed Type Cetirizine HCl [Zyrtec] 10 mg PO DAILY 08/06/20 04/25/23 History norethindrone-e.estradioL-iron 1 tab PO DAILY 01/08/23 01/08/23 History [Mat Fe 1.5-30 Tablet] Acetaminophen Tab [Tylenol] 650 mg PO Q4HR PRN tab 01/10/23 Rx Aspirin 81 mg PO DAILY #30 tab 01/10/23 Rx Atorvastatin [Lipitor] 20 mg PO HS #30 tab 01/10/23 Rx cefUROXime axetiL [Ceftin] 500 mg PO BID 7 Days #14 tab 01/10/23 Rx Allergies Allergy/AdvReac Type Severity Reaction Status Date / Time cat dander Allergy Unknown Unknown Verified 01/08/23 09:48 bacitracin Allergy Rash/Hives Verified 01/08/23 09:48 [From Neosporin ([id number])] neomycin Allergy Rash/Hives Verified 01/08/23 09:48 [From Neosporin ([id number])] polymyxin B Allergy Rash/Hives Verified 01/08/23 09:48 [From Neosporin ([id number])] adhesive AdvReac Unknown rash, Verified 01/08/23 09:48 tears skin Physical Exam Vitals: Vital Signs Temp Pulse Resp BP Pulse Ox 01/08/23 13:17 105 H 01/08/23 13:16 133 H 97 01/08/23 12:16 98.3 F 101 H 18 117/75 97 01/08/23 10:00 123 H 18 114/98 97 01/08/23 08:59 98.3 F 140 H 18 123/84 98 Intake and Output 01/08/23 01/08/23 01/08/23 06:59 14:59 22:59 Other: Weight 108.862 kg GENERAL DESCRIPTION: Middle-aged female lying in bed, no distress. No tachypnea or accessory muscle of respiration use. HEENT: Shows Pallor , no scleral icterus. Oral mucous membrane is dry. No pharyngeal erythema or thrush NECK: Trachea central, no thyromegaly. LUNGS: Unlabored breathing. Clear to auscultation anteriorly. No wheeze or crackle. HEART: S1, S2, regular rate and rhythm. No loud murmur ABDOMEN: Soft, no tenderness , guarding or rigidity, no organomegaly EXTREMITIES: No edema of feet. SKIN: No rash, no masses palpable. NEUROLOGICAL: The patient is awake, alert, oriented x3, mood and affect normal. Results CBC & Chem 7: 01/09/23 07:40 01/09/23 07:40 Labs: Abnormal Lab Results - Last 24 Hours (Table) 01/08/23 01/08/23 01/08/23 Range/Units 10:17 10:17 10:17 WBC 16.7 H (3.8-10.6) k/uL Neutrophils # 14.9 H (1.3-7.7) k/uL APTT 20.8 L (22.0-30.0) sec D-Dimer 1.25 H (<0.60) mg/L FEU Glucose 102 H (74-99) mg/dL Urine Appearance (Clear) Urine Ketones (Negative) Ur Leukocyte Esterase (Negative) Urine WBC (0-5) /hpf Ur Squamous Epith Cells (0-4) /hpf Urine Bacteria (None) /hpf Urine Mucus (None) /hpf 01/08/23 Range/Units 13:41 WBC (3.8-10.6) k/uL Neutrophils # (1.3-7.7) k/uL APTT (22.0-30.0) sec D-Dimer (<0.60) mg/L FEU Glucose (74-99) mg/dL Urine Appearance Cloudy H (Clear) Urine Ketones Trace H (Negative) Ur Leukocyte Esterase Moderate H (Negative) Urine WBC 7 H (0-5) /hpf Ur Squamous Epith Cells 13 H (0-4) /hpf Urine Bacteria Few H (None) /hpf Urine Mucus Occasional H (None) /hpf Assessment and Plan (1) SIRS (systemic inflammatory response syndrome) Status: Acute Code(s): R65.10 - SIRS OF NON-INFECTIOUS ORIGIN W/O ACUTE ORGAN DYSFUNCTION SNOMED Code(s): 448084597 Plan: 1patient was in the hospital with SIRS in this patient who did have a low-grade fever tachycardia she did have predominantly respiratory symptoms however CT angiogram of the chest as well as chest x-ray mention acute consolidation or infiltrate suggestive of pneumonia CT normal chest also did not show a large pulmonary embolus, patient did have mildly positive UA however abdominal soft on clinical examination no evidence of any joint swelling or cellulitis 2-we will check inflammatory markers and check blood cultures 3-May continue empiric Rocephin while waiting for the work-up to be completed We will follow on clinical condition and cultures to further adjust medication if needed Thank you for this consultation we will follow the patient along with you Time with Patient: Greater than 30
[2023-01-08] MEDS ORDERED: ACETAMINOPHEN TAB 325 MG TAB PO PRN (20:10)
[2023-01-08] MEDS ORDERED: SODIUM CHLORIDE 0.9% 500 ML 500 ML IV ONE (21:22)
[2023-01-08 21:47] LABS: C Reactive Protein 5.7 mg/dL (<1.0)
[2023-01-08] MEDS: SODIUM CHLORIDE 0.9% 1,000 ML IV SCH (22:45)
--- NOTE | 2023-01-09 00:59 | HP ---
HISTORY AND PHYSICAL CHIEF COMPLAINT: Chest discomfort and palpitation. HISTORY OF PRESENT ILLNESS: This is a 32-year-old woman, who was previously healthy except asthma, as well as stomach ulcers, and GERD, was complaining of some chest discomfort when the patient woke up at 3 a.m., some difficulty with deep breathing and the patient came to [facility], found to have tachycardia. The basic labs showed WBC 16.7. Some mild fever is suspected. D-dimer is 1.25. UA showed some minimal abnormalities and the patient admitted for further evaluation and treatment. The chest CTA showed suboptimal exam, but no definite large pulmonary emboli was noted. A tiny hiatal hernia was also noted. There is no history of headache, loss of conscious, or seizures. PAST MEDICAL HISTORY: GERD, history of asthma, cholecystectomy. The rest of the chart and rest of the diagnosis are reviewed. HOME MEDICATIONS: Aspirin. ALLERGIES: Cat dander. Rest of the allergies are noted. FAMILY HISTORY: No history of heart disease or strokes in the family. SOCIAL HISTORY: No history of smoking. Occasional alcohol. REVIEW OF SYSTEMS: A 14-point review is negative except as mentioned earlier. PHYSICAL EXAMINATION: VITAL SIGNS: Pulse is 101, blood pressure 170/74, respirations 18. HEENT: Conjunctivae normal. NECK: No JVD. CARDIOVASCULAR: S1, S2, tachycardic. RESPIRATIONS: Clear to auscultation. ABDOMEN: Soft, nontender. LEGS: No edema. No swelling. NERVOUS SYSTEM: No focal deficits. SKIN: No ulcer, rash, bleeding. JOINTS: No active deforming arthropathy. LABORATORY DATA: WBC 16.6. Rest of the labs are noted. ASSESSMENT: 1. Tachycardia. Chest discomfort for evaluation. 2. CT angio reviewed. 3. Elevated D-dimer. 4. Rule out acute urinary tract infection and sepsis. 5. Gastroesophageal reflux disease. 6. History of asthma. 7. History of stomach ulcers. 8. History of cholecystitis and cholecystectomy. RECOMMENDATIONS AND DISCUSSION: This is a 32-year-old woman, who presented with multiple complex medical issues. We will monitor the patient closely. I would recommend continue the current medications. I would recommend Cardiology, Infectious Disease evaluation. Cultures will be obtained both urine and blood and I would also initiate empiric antibiotics also. Ultrasound of the urinary bladder also will be recommended. Further recommendations to follow. MMODL / IJN: [id number] /
[2023-01-09] MEDS: NITROGLYCERIN OINT 1 INCH/GM PACKET TOPICAL SCH (05:12)
[2023-01-09] MEDS: SODIUM CHLORIDE 0.9% 1,000 ML IV SCH ×2 (08:02→17:34)
[2023-01-09] MEDS: HEPARIN SODIUM,PORCINE/PF 5,000 UNIT/0.5 ML SYRINGE SQ SCH ×2 (08:04→20:37)
[2023-01-09] MEDS: LORATADINE 10 MG TAB PO SCH (08:04)
[2023-01-09] MEDS ORDERED: ASPIRIN 325 MG TAB PO SCH (09:00)
--- NOTE | 2023-01-09 10:09 | P.CRDCN ---
History of Present Illness History of present illness: HISTORY OF PRESENT ILLNESS: This is a 32-year-old female with a past medical history significant for prediabetes and hyperlipidemia. Patient does not follow with a communications editor. We have been asked to see the patient in consultation for chest pain. Patient examined at the bedside. Patient states that yesterday morning she woke up around 3:00 in the morning from sleep with shortness of breath and palpitations. She reports chest pain when she was trying to take a deep breath yesterday. She reports feeling dizzy yesterday which has since resolved. She reports her shortness of breath is better this morning. She denies any further episodes of palpitations. Telemetry reveals sinus mechanism. The patient was tachycardic when she arrived to the hospital. The patient reports a history of hyperlipidemia and states that she used to be on statin therapy. She states she had a lap elton performed in August 2022 and stopped taking her statin at that time and never resumed it. At the time of examination, the patient denies chest pain or pressure. * EKG reveals sinus tachycardia with no signs of acute ischemia * Chest xray negative for acute process * Chest CTA: Suboptimal exam for assessment of pulmonary embolism. No definite large central PE. Lobar, segmental, and more distal arterial branches are very limited or nondiagnostic. No acute pulmonary process. Tiny hiatal hernia. * Laboratory data: WBC 16.7. Hemoglobin 14.6. Platelet count 286. D-dimer 1.25. Sodium 137. Potassium 4.0. BUN 13. Creatinine 0.84. Troponin negative 3. TSH 1.520. Pro calcitonin 0.10 * Current home cardiac medications include none * No previous echocardiogram or cardiac catheterization available for review REVIEW OF SYSTEMS: At the time of my exam: CONSTITUTIONAL: Denies fever or chills. HEENT: Denies blurred vision, vision changes, or eye pain. Denies hemoptysis CARDIOVASCULAR: Denies chest pain. Denies orthopnea. Denies PND. Denies palpitations RESPIRATORY: Denies shortness of breath. GASTROINTESTINAL: Denies abdominal pain. Denies nausea or vomiting. HEMATOLOGIC: Denies bleeding disorders. GENITOURINARY: Denies any blood in urine. SKIN: Denies pruitis. Denies rash. PHYSICAL EXAM: VITAL SIGNS: Reviewed. GENERAL: Well-developed in no acute distress. HEENT: Head is normocephalic. Pupils are equal, round. Sclerae anicteric. Mucous membranes of the mouth are moist. Neck supple. No JVD or thyromegaly LUNGS: Respirations even and unlabored. Lungs essentially clear to auscultation bilaterally. HEART: Regular rate and rhythm. S1 and S2 heard. ABDOMEN: Soft. Nondistended. Nontender. EXTREMITIES: Normal range of motion. No clubbing or cyanosis. Peripheral pulses intact. No lower extremity edema NEUROLOGIC: Awake and alert. Oriented x 3. ASSESSMENT: Chest pain, troponins negative 3 Sinus tachycardia Leukocytosis with low-grade fever, etiology unclear Dizziness, resolved Elevated d-dimer, CT negative for PE Prediabetic, per patient Hyperlipidemia, stopped taking statin therapy after lap elton Morbid obesity PLAN: Obtain 2D echo to assess cardiac structure and function Decrease aspirin to 81 mg daily Add atorvastatin 20 mg at night. Obtain lipid panel Obtain hemoglobin A1c Continue telemetry monitoring Patient to undergo stress echocardiogram today Infectious workup per ID. Continue antibiotics per Dr. Villatoro Further recommendations pending patient course Nurse practitioner note has been reviewed by physician. Signing provider agrees with the documented findings, assessment, and plan of care. Past Medical History Past Medical History: GERD/Reflux Additional Past Medical History / Comment(s): Hx Asthma as a child, Hx stomach ulcers ., gall bladder pain and diarrhea. History of Any Multi-Drug Resistant Organisms: None Reported Past Surgical History: Cholecystectomy, Orthopedic Surgery Additional Past Surgical History / Comment(s): rt wrist surgery with hardware and removal, egd. Past Anesthesia/Blood Transfusion Reactions: Motion Sickness Additional Past Anesthesia/Blood Transfusion Reaction / Comment(s): "Woke up too early." Past Psychological History: No Psychological Hx Reported Smoking Status: Never smoker Past Alcohol Use History: Occasional Past Drug Use History: None Reported - Past Family History Mother Family Medical History: No Reported History Medications and Allergies Home Medications Medication Instructions Recorded Confirmed Type Cetirizine HCl [Zyrtec] 10 mg PO DAILY 04/21/20 01/08/23 History norethindrone-e.estradioL-iron 1 tab PO DAILY 01/08/23 01/08/23 History [Mat Fe 1.5-30 Tablet] Allergies Allergy/AdvReac Type Severity Reaction Status Date / Time cat dander Allergy Unknown Unknown Verified 01/08/23 09:48 bacitracin Allergy Rash/Hives Verified 01/08/23 09:48 [From Neosporin ([id number])] neomycin Allergy Rash/Hives Verified 01/08/23 09:48 [From Neosporin ([id number])] polymyxin B Allergy Rash/Hives Verified 01/08/23 09:48 [From Neosporin ([id number])] adhesive AdvReac Unknown rash, Verified 01/08/23 09:48 tears skin Physical Exam Vitals: Vital Signs Temp Pulse Pulse Resp BP BP Pulse Ox 01/09/23 06:39 98.6 F 99 17 128/80 98 01/09/23 02:40 98.3 F 101 H 18 114/75 99 01/08/23 18:51 98.3 F 96 18 124/79 97 01/08/23 17:33 90 18 124/74 97 01/08/23 16:18 101 H 18 118/80 96 01/08/23 15:00 108 H 18 96 01/08/23 13:17 105 H 01/08/23 13:16 133 H 97 01/08/23 12:16 98.3 F 101 H 18 117/75 97 01/08/23 10:09 99.9 F H 01/08/23 10:00 123 H 18 114/98 97 01/08/23 08:59 98.3 F 140 H 18 123/84 98 Intake and Output 01/08/23 01/09/23 01/09/23 22:59 06:59 14:59 Other: # Voids 1 2 Weight 108.862 kg Results 01/08/23 10:17 01/08/23 10:17 Cardiac Enzymes 01/08/23 01/08/23 01/08/23 Range/Units 10:17 10:17 15:22 AST 27 (14-36) U/L Lactate Dehydrogenase (120-246) U/L Troponin I <0.012 <0.012 (0.000-0.034) ng/mL 01/08/23 01/08/23 Range/Units 19:27 20:31 AST (14-36) U/L Lactate Dehydrogenase 209 (120-246) U/L Troponin I <0.012 (0.000-0.034) ng/mL Coagulation 01/08/23 Range/Units 10:17 PT 9.3 (9.0-12.0) sec APTT 20.8 L (22.0-30.0) sec CBC 01/08/23 Range/Units 10:17 WBC 16.7 H (3.8-10.6) k/uL RBC 4.74 (3.80-5.40) m/uL Hgb 14.6 (11.4-16.0) gm/dL Hct 44.2 (34.0-46.0) % Plt Count 286 (150-450) k/uL Comprehensive Metabolic Panel 01/08/23 Range/Units 10:17 Sodium 137 (137-145) mmol/L Potassium 4.0 (3.5-5.1) mmol/L Chloride 103 (98-107) mmol/L Carbon Dioxide 23 (22-30) mmol/L BUN 13 (7-17) mg/dL Creatinine 0.84 (0.52-1.04) mg/dL Glucose 102 H (74-99) mg/dL Calcium 9.0 (8.4-10.2) mg/dL AST 27 (14-36) U/L ALT 29 (4-34) U/L Alkaline Phosphatase 69 (38-126) U/L Total Protein 7.0 (6.3-8.2) g/dL Albumin 4.2 (3.5-5.0) g/dL Current Medications Generic Name Dose Route Start Last Admin Trade Name Freq PRN Reason Stop Dose Admin Acetaminophen 650 mg 01/08/23 20:10 01/08/23 20:24 Acetaminophen Tab 325 Mg Tab PO 650 mg Q4HR PRN Administration Fever and/ or Mild Pain Alprazolam 0.25 mg 01/08/23 14:42 Alprazolam 0.25 Mg Tab PO TID PRN Anxiety Aspirin 325 mg 01/09/23 09:00 01/09/23 08:04 Aspirin 325 Mg Tab PO 325 mg DAILY TODD Administration Heparin Sodium (Porcine) 5,000 unit 01/08/23 14:45 01/09/23 08:04 Heparin Sodium,Porcine/Pf 5,000 Unit/0.5 Ml Syringe SQ Not Given Q12HR TODD Ceftriaxone Sodium 1 gm/ 50 mls @ 100 mls/hr 01/08/23 14:45 01/09/23 08:02 Sodium Chloride IVPB 100 mls/hr Q24HR TODD Administration Protocol Sodium Chloride 1,000 mls @ 100 mls/hr 01/08/23 21:30 01/09/23 08:02 Saline 0.9% IV 100 mls/hr .Q10H TODD Administration Loratadine 10 mg 01/09/23 09:00 01/09/23 08:04 Loratadine 10 Mg Tab PO 10 mg DAILY TODD Administration Nitroglycerin 0.4 mg 01/08/23 14:08 Nitroglycerin Sl Tabs 0.4 Mg Tab SUBLINGUAL Q5M PRN Chest Pain Intake and Output 01/08/23 01/09/23 01/09/23 22:59 06:59 14:59 Other: # Voids 1 2 Weight 108.862 kg 01/08/23 10:17 01/08/23 10:17
[2023-01-09 11:12] LABS: Basophils # (A) 0.04 X 10*3/uL (0.00-0.10); Basophils % (A) 0.4 %; Eosinophils # (A) 0.27 X 10*3/uL (0.04-0.35); Eosinophils % (A) 2.7 %; HCT 39.1 % (37.2-46.3); HGB 12.8 g/dL (12.0-15.0); Immature Grans, Automated 0.3 %; Lymphocytes # (A) 1.61 X 10*3/uL (0.90-5.00); Lymphocytes % (A) 16.2 %; MCH 31.2 pg (27.0-32.0); MCHC 32.7 g/dL (32.0-37.0); MCV 95.4 fL (80.0-97.0); Mean Platelet Volume 10.1 fL (9.5-12.2); Monocytes # (A) 0.48 X 10*3/uL (0.20-1.00); Monocytes % (A) 4.8 %; NRBC Per 100 WBC 0 /100 WBCS (0.0-0.0); Neutrophils # (A) 7.51 X 10*3/uL (1.80-7.70); Neutrophils % (A) 75.6 %; Platelet Count 245 X 10*3/uL (140-440); RDW 12.7 % (11.5-14.5); WBC 9.94 X 10*3/uL (4.50-10.00)
[2023-01-09 11:29] LABS: African American GFR (CKD) 112.3 (60.0-200.0); BUN/Creat Ratio 9.25 Ratio (12.00-20.00); Blood Urea Nitrogen 7.4 mg/dL (9.0-27.0); Calcium 8.7 mg/dL (8.7-10.3); Carbon Dioxide 21.7 mmol/L (20.0-27.5); Chloride 108 mmol/L (96-109); Glucose 97 mg/dL (70-110); LDL Cholesterol,Calculated 129.5 mg/dL (0.0-131.0); Non-African American GFR(CKD) 96.9 (60.0-200.0); Sodium 140 mmol/L (135-145)
--- NOTE | 2023-01-09 12:49 | CA ---
Stress Echo Report Amy Lindsey Age: 32 Gender: F : 1990 Exam Date: 01/09/2023 12:02 Exam Location: [facility] Ht (in): 64 Wt (lb): 240 Ordering Physician: Jeannette Man Referring Physician: [id number] Bundle Tier And Labeler: Vickie Cardenas RDCS Technologist Procedure CPT: Indication: CP, SOB ICD-9 Codes: Rhythm: Patient History: Cardiac arrhythmia Cardiac Medications: NONE Medications in past 24 hours: Contrast: Stress Results Protocol: Patrice Total dose(mL): Exercise Duration (min:sec): 6:[address] Depression (mm): Angina Score: Yang Score: METS: 7.3 Resting HR: 128 Resting BP: 155 / 87 Peak HR: 171 Peak BP: 210 / 63 Max Predicted HR: 187 91 % Max Predicted HR Target HR: 159 Double Product: 95517 Stress Summary: The patient's target heart rate was achieved BP Response: Normal Reason for Termination: Reached target heart rate or work-load Cardiac Symptoms: Test terminated after reaching target heart rate (85% max predicted) ECG Analysis Resting ECG: Stress ECG: Arrhythmia: Echo Analysis Resting Echo: Peak Echo Analysis: MEASUREMENTS (Male/Female) Normal Values CONCLUSIONS Good exercise tolerance Normal EKG and echo in response to exercise Dr. Edwin Larios MD (Electronically Signed) Final Date: 09 January 2023 12:48
--- NOTE | 2023-01-09 13:08 | CT ---
EXAMINATION TYPE: CT pelvis wo con DATE OF EXAM: 01/09/2023 COMPARISON: None. HISTORY: pelvic pain. Endometritis/pelvic infection. CT DLP: 989.2 mGycm Automated exposure control for dose reduction was used. FINDINGS: Normal-appearing appendix from the base of cecum near coronal image 30. No suspicious small or large bowel dilatation. Anteverted uterus. No concerning adnexal masses. No free fluid. Urinary bladder appears within normal limits. Visualized osseous structures are intact. Tiny fat-containing umbilical hernia incidentally noted. IMPRESSION: Unremarkable noncontrast pelvic CT study.
--- NOTE | 2023-01-09 15:01 | P.PN ---
Subjective Progress Note Date: 01/09/23 Principal diagnosis: Fever Patient is a 32-year-old female with a past medical history significant for asthma as a child history of GERD reflux patient is on control pills presenting to the ER with symptoms of chest pressure or shortness of breath noticed to be tachycardic and did have a low-grade fever, CT angiogram of the chest did not show large central PE and an ammonia did have mildly positive UA and apparently the patient recently did have a pelvic infection diagnosed by her OB and treated with antibiotics patient not sure about the name On today's evaluation of that is 01/09/2023, the patient is afebrile patient is very slightly comfortably and is on room air. Denies having any chest pain no cough or sputum production no abdominal pain no diarrhea no urinary symptoms Objective - Vital Signs Vital signs: Vital Signs Temp 98.6 F 01/09/23 06:39 Pulse 99 01/09/23 08:31 Resp 17 01/09/23 08:31 BP 128/80 01/09/23 06:39 Pulse Ox 98 01/09/23 06:39 FiO2 Intake & Output 01/08/23 01/09/23 01/09/23 18:59 06:59 18:59 Weight 108.862 kg 108.862 kg Other: Voiding Method Toilet # Voids 2 - Exam GENERAL DESCRIPTION: Middle-aged female lying in bed in no distress RESPIRATORY SYSTEM: Unlabored breathing , decreased breath sounds at bases HEART: S1 S2 regular rate and rhythm , ABDOMEN: Soft , no tenderness EXTREMITIES: No edema feet - Labs CBC & Chem 7: 01/09/23 07:40 01/09/23 07:40 Labs: Abnormal Lab Results - Last 24 Hours (Table) 01/08/23 01/08/23 01/08/23 Range/Units 10:17 10:17 10:17 WBC 16.7 H (3.8-10.6) k/uL Neutrophils # 14.9 H (1.3-7.7) k/uL APTT 20.8 L (22.0-30.0) sec D-Dimer 1.25 H (<0.60) mg/L FEU Glucose 102 H (74-99) mg/dL C-Reactive Protein (<1.0) mg/dL Procalcitonin (0.02-0.09) ng/mL Urine Appearance (Clear) Urine Ketones (Negative) Ur Leukocyte Esterase (Negative) Urine WBC (0-5) /hpf Ur Squamous Epith Cells (0-4) /hpf Urine Bacteria (None) /hpf Urine Mucus (None) /hpf 01/08/23 01/08/23 01/08/23 Range/Units 13:41 20:31 20:31 WBC (3.8-10.6) k/uL Neutrophils # (1.3-7.7) k/uL APTT (22.0-30.0) sec D-Dimer (<0.60) mg/L FEU Glucose (74-99) mg/dL C-Reactive Protein 5.7 H (<1.0) mg/dL Procalcitonin 0.10 H (0.02-0.09) ng/mL Urine Appearance Cloudy H (Clear) Urine Ketones Trace H (Negative) Ur Leukocyte Esterase Moderate H (Negative) Urine WBC 7 H (0-5) /hpf Ur Squamous Epith Cells 13 H (0-4) /hpf Urine Bacteria Few H (None) /hpf Urine Mucus Occasional H (None) /hpf Assessment and Plan (1) SIRS (systemic inflammatory response syndrome) Current Visit: Yes Status: Acute Code(s): R65.10 - SIRS OF NON-INFECTIOUS ORIGIN W/O ACUTE ORGAN DYSFUNCTION SNOMED Code(s): 938923473 Plan: 1patient was in the hospital with SIRS in this patient who did have a low-grade fever tachycardia she did have predominantly respiratory symptoms however CT angiogram of the chest as well as chest x-ray mention acute consolidation or infiltrate suggestive of pneumonia CT normal chest also did not show a large pulmonary embolus, patient did have mildly positive UA however abdominal soft on clinical examination no evidence of any joint swelling or cellulitis 2-we will check CT of the pelvis with a recent history of pelvic infection to make sure not the source of current symptoms Patient will continue Rocephin while waiting for the cultures to finalize Time with Patient: Less than 30
[2023-01-09] MEDS ORDERED: ATORVASTATIN 20 MG TAB PO SCH (21:00)
[2023-01-10 04:06] VITALS: RESP 17
[2023-01-10] MEDS: SODIUM CHLORIDE 0.9% 1,000 ML IV SCH (04:12)
--- NOTE | 2023-01-10 06:58 | PN ---
PROGRESS NOTE DATE OF SERVICE: 01/09/2023 SUBJECTIVE: This is a 32-year-old woman, who was admitted with chest discomfort and palpitation, tachycardia, is being closely monitored at this time. UTI is suspected. Cultures are negative. Pelvis CT scan was unremarkable. OBJECTIVE: VITAL SIGNS: Pulse is 99, blood pressure 128/80, respirations 17. CHEST: Clear to auscultation. CARDIOVASCULAR: S1, S2 muffled. ABDOMEN: Soft. NERVOUS SYSTEM: Nonfocal. LABORATORY DATA: Reviewed. Procalcitonin 0.1. UA is abnormal. ASSESSMENT: 1. Tachycardia and chest discomfort for evaluation. 2. Elevated D-dimer. 3. Possible systemic inflammatory response syndrome with possible acute urinary tract infection. 4. Gastroesophageal reflux disease. 5. History of asthma. 6. History of stomach ulcers. 7. History of cholecystitis and cholecystectomy. RECOMMENDATIONS AND DISCUSSION: I recommend to continue current medications. Continue symptomatic treatment. Otherwise, as mentioned earlier, continue with antibiotics. Follow the cultures. Closely follow with Infectious Disease. Cardiology is also following the patient closely. Stress echo was reported as normal and further recommendations to follow. MMODL / IJN: [id number] /
[2023-01-10 07:20] VITALS: BP 115/80; PULSE 92; TEMP 98.7
[2023-01-10] MEDS ORDERED: ASPIRIN 81 MG PO SCH (09:00)
[2023-01-10] MEDS: LORATADINE 10 MG TAB PO SCH (09:01)
[2023-01-10] MEDS: HEPARIN SODIUM,PORCINE/PF 5,000 UNIT/0.5 ML SYRINGE SQ SCH (09:04)
--- NOTE | 2023-01-10 09:51 | CA ---
Transthoracic Echo Report Name: Amy Lindsey Age: 32 Gender: F : 1990 Exam Date: 01/09/2023 11:28 Exam Location: [facility] Ht (in): 64 Wt (lb): 240 Ordering Physician: Jeannette Man Attending/Referring Phys: [id number], Magda Platform Power Technician Vickie Cardenas RDCS Procedure CPT: Indications: LV function Cardiac Hx: Technical Quality: Fair Contrast 1: Total Dose (mL): Contrast 2: Total Dose (mL): MEASUREMENTS (Male / Female) Normal Values 2D ECHO LV Diastolic Diameter PLAX 3.5 cm 4.2 - 5.9 / 3.9 - 5.3 cm LV Systolic Diameter PLAX 1.9 cm IVS Diastolic Thickness 1.2 cm 0.6 - 1.0 / 0.6 - 0.9 cm LVPW Diastolic Thickness 1.3 cm 0.6 - 1.0 / 0.6 - 0.9 cm LV Relative Wall Thickness 0.7 RV Internal Dim ED PLAX 3.0 cm M-MODE Aortic Root Diameter MM 2.9 cm LA Systolic Diameter MM 2.1 cm LA Ao Ratio MM 0.7 AV Cusp Separation MM 3.5 cm DOPPLER AV Peak Velocity 143.4 cm/s AV Peak Gradient 8.2 mmHg AV Mean Velocity 104.8 cm/s AV Mean Gradient 5.1 mmHg AV Velocity Time Integral 29.0 cm LVOT Peak Velocity 114.3 cm/s LVOT Peak Gradient 5.2 mmHg LVOT Velocity Time Integral 29.7 cm Mitral E Point Velocity 107.9 cm/s Mitral A Point Velocity 66.3 cm/s Mitral E to A Ratio 1.6 MV Deceleration Time 190.2 ms MV E' Velocity 15.4 cm/s Mitral E to MV E' Ratio 7.0 TR Peak Velocity 233.9 cm/s TR Peak Gradient 21.9 mmHg Right Ventricular Systolic Press 32.5 mmHg FINDINGS Left Ventricle Mildly increased left ventricular wall thickness. Left ventricular cavity size normal. Normal left ventricular systolic function with no obvious regional wall motion abnormalities. Left ventricular ejection fraction is estimated at 55-60 %. Right Ventricle Normal right ventricular size and function. Right ventricular systolic pressure within normal limits. Right Atrium Normal right atrial size. Left Atrium Normal left atrial size. Mitral Valve Structurally normal mitral valve. No mitral stenosis, regurgitation or prolapse. Aortic Valve Trileaflet aortic valve. No aortic valve stenosis or regurgitation. Tricuspid Valve Structurally normal tricuspid valve. Mild tricuspid regurgitation. Pulmonic Valve Structurally normal pulmonic valve. Trace pulmonic regurgitation. Pericardium No pericardial effusion. Aorta Normal size aortic root and proximal ascending aorta. CONCLUSIONS Poorly visualized endocardium. Normal LV systolic function Overall normal intracardiac valves Previewed by: Dr. Edwin Larios MD (Electronically Signed) Final Date: 10 January 2023 09:50
--- NOTE | 2023-01-12 08:29 | P.DS ---
Providers Date of admission: 01/09/23 13:05 Expected date of discharge: 01/10/23 Attending physician: Alex Orantes Consults: 01/08/23 14:43 Consult Physician Routine Consulting Provider: Jose Villatoro Consult Reason/Comments: sepsis Do you want consulting provider notified?: Yes Primary care physician: Lucrecia Titus Hospital Course: Final diagnosis Tachycardia and chest discomfort, ruled out ACS Elevated d-dimer with no evidence of PE Possible Sirs with possible acute urinary tract infection, present on admission Gastroesophageal reflux disease History of asthma, not an exacerbation History of stomach ulcers History of cholecystitis with cholecystectomy Morbid obesity with a BMI of 41.2 Discharge disposition Patient is being discharged in a stable condition with guarded prognosis to home. Patient will follow-up with Dr. Titus in the outpatient setting upon discharge. Patient is to continue with oral Ceftin 500 mg twice daily for 1 week and outpatient follow-up with cardiology as scheduled. Total time taken is greater than 35 minutes. Hospital course This is a 32-year-old female who was recently admitted with chest pain and elevated heart rate with concerns of urinary tract infection with SIRS present on admission and being closely monitored. Patient was evaluated by infectious disease maintained on ceftriaxone showing clinical improvement and will continue on oral Ceftin twice daily for the next 1 week. Patient also evaluated by cardiology and was cleared for outpatient follow. Please refer to consultation notes for further HPI. Currently no reports of chest pain, shortness of breath, or palpitations. Patient is afebrile. No reports of nausea or vomiting and patient is tolerating diet. Patient will be discharged home today. Physical exam: Gen: This is a 32-year-old female who is awake, alert and oriented 3, well- developed, well-nourished, morbidly obese HEENT: Head is atraumatic, normocephalic. Pupils equal, round. Sclerae is anicteric. NECK: Supple. No JVD. No lymphadenopathy. No thyromegaly. LUNGS: Clear to auscultation. No wheezes or rhonchi. No intercostal retractions. HEART: Regular rate and rhythm. No murmur. ABDOMEN: Soft. Bowel sounds are present. No masses. Some lower abdominal tenderness on palpation. EXTREMITIES: No pedal edema. No calf tenderness. NEUROLOGICAL: Patient is awake, alert and oriented x3. Cranial nerves 2 through 12 are grossly intact. Please refer to medication reconciliation sheet for a list of medications. The impression and plan of care has been dictated by Gillian Granados, Nurse Practitioner as directed. Dr. Lamberto MD I have performed a history and examination and MDM of this patient, discussed the same with the dictator, and agree with the dictator's assessment and plan as written ,documented as a scribe. Based on total visit time, I have performed more than 50% of the visit. Patient Condition at Discharge: Stable Plan - Discharge Summary New Discharge Prescriptions: New Aspirin 81 mg PO DAILY #30 tab Acetaminophen Tab [Tylenol] 650 mg PO Q4HR PRN tab PRN Reason: Fever and/ or Mild Pain Atorvastatin [Lipitor] 20 mg PO HS #30 tab cefUROXime axetiL [Ceftin] 500 mg PO BID 7 Days #14 tab Continue Cetirizine HCl [Zyrtec] 10 mg PO DAILY norethindrone-e.estradioL-iron [Mat Fe 1.5-30 Tablet] 1 tab PO DAILY Discharge Medication List Cetirizine HCl [Zyrtec] 10 mg PO DAILY 04/21/20 [History] norethindrone-e.estradioL-iron [Mat Fe 1.5-30 Tablet] 1 tab PO DAILY 01/08/23 [History] Acetaminophen Tab [Tylenol] 650 mg PO Q4HR PRN tab 01/10/23 [Rx] Aspirin 81 mg PO DAILY #30 tab 01/10/23 [Rx] Atorvastatin [Lipitor] 20 mg PO HS #30 tab 01/10/23 [Rx] cefUROXime axetiL [Ceftin] 500 mg PO BID 7 Days #14 tab 01/10/23 [Rx] Follow up Appointment(s)/Referral(s): Lucrecia Titus MD [Primary Care Provider] - 1-2 days Edwin Larios MD [STAFF PHYSICIAN] - 1 Week (Office will call with appointment time and date.) Patient Instructions/Handouts: Sepsis (DC), Tachycardia (ED) Activity/Diet/Wound Care/Special Instructions: Activity Limited until follow-up Continue taking antibiotics until finished Follow-up with primary care provider on discharge Follow-up cardiology outpatient Continue taking antibiotics for 7 days Discharge Disposition: HOME SELF-CARE
--- NOTE | 2023-01-17 12:54 | P.PN ---
Subjective Progress Note Date: 01/10/23 Principal diagnosis: Fever Patient is a 32-year-old female with a past medical history significant for asthma as a child history of GERD reflux patient is on control pills presenting to the ER with symptoms of chest pressure or shortness of breath noticed to be tachycardic and did have a low-grade fever, CT angiogram of the chest did not show large central PE and an ammonia did have mildly positive UA and apparently the patient recently did have a pelvic infection diagnosed by her OB and treated with antibiotics patient not sure about the name On today's evaluation of that is 01/10/2023, the patient remains to be afebrile patient is breathing comfortably on room air, the patient denies having any chest pain no cough or sputum production no abdominal pain no diarrhea no urinary symptoms Objective - Vital Signs Vital signs: Vital Signs Temp 98.7 F 01/10/23 07:19 Pulse 92 01/10/23 07:19 Resp 17 01/10/23 07:53 BP 115/80 01/10/23 07:19 Pulse Ox 95 01/10/23 07:19 FiO2 Intake & Output 01/09/23 01/10/23 01/10/23 18:59 06:59 18:59 Intake Total 118 Balance 118 Intake: Oral 118 Other: Voiding Method Toilet Toilet Toilet # Voids 4 1 - Exam GENERAL DESCRIPTION: Middle-aged female lying in bed in no distress RESPIRATORY SYSTEM: Unlabored breathing , decreased breath sounds at bases HEART: S1 S2 regular rate and rhythm , ABDOMEN: Soft , no tenderness EXTREMITIES: No edema feet - Labs CBC & Chem 7: 01/09/23 07:40 01/09/23 07:40 Labs: Abnormal Lab Results - Last 24 Hours (Table) 01/09/23 Range/Units 07:40 BUN 7.4 L (9.0-27.0) mg/dL BUN/Creatinine Ratio 9.25 L (12.00-20.00) Ratio Cholesterol 206.00 H (0.00-200.00) mg/dL Microbiology - Last 24 Hours (Table) 01/08/23 21:19 Blood Culture - Preliminary Blood 01/08/23 15:21 Urine Culture - Preliminary Urine,Voided Assessment and Plan (1) SIRS (systemic inflammatory response syndrome) Status: Acute Code(s): R65.10 - SIRS OF NON-INFECTIOUS ORIGIN W/O ACUTE ORGAN DYSFUNCTION SNOMED Code(s): 744631364 Plan: 1patient was in the hospital with SIRS in this patient who did have a low-grade fever tachycardia she did have predominantly respiratory symptoms however CT angiogram of the chest as well as chest x-ray mention acute consolidation or infiltrate suggestive of pneumonia CT normal chest also did not show a large pulmonary embolus, patient did have mildly positive UA however abdominal soft on clinical examination no evidence of any joint swelling or cellulitis 2- CT of the pelvis came back negative for any endometritis or other pelvic abnormality 3-patient seemed to have shown clinical improvement and wants to go home we will give a short course of oral Ceftin on discharge and close patient follow-up
== END 2023-01-10 12:07 | disposition home or self-care (01) ==
LOC: EC 08:52 → 6NMEDSUR 14:16 → INTOOBSV 01-09 13:05 → OBSVTOIN 01-09 13:05 → UNDODISOB 01-10 12:07
PROVIDERS: ADMIT Hospitalist; ATTEND Hospitalist
DX: R00.0 Tachycardia, unspecified (principal); R79.1 Abnormal coagulation profile; K21.9 Gastro-esophageal reflux disease without esophagitis; E66.01 Morbid (severe) obesity due to excess calories; Z68.41 Body mass index [BMI] 40.0-44.9, adult; Z87.11 Personal history of peptic ulcer disease; Z20.822 Contact with and (suspected) exposure to COVID-19; Z90.49 Acquired absence of other specified parts of digestive tract; Z87.19 Personal history of other diseases of the digestive system; Z98.890 Other specified postprocedural states; Z91.128 Patient's intentional underdosing of medication regimen for other reason; Z79.3 Long term (current) use of hormonal contraceptives; Z79.899 Other long term (current) drug therapy; Z79.82 Long term (current) use of aspirin; Z88.3 Allergy status to other anti-infective agents; Z88.8 Allergy status to other drugs, medicaments and biological substances; Z91.09 Other allergy status, other than to drugs and biological substances; R73.03 Prediabetes; E78.5 Hyperlipidemia, unspecified
CPT/HCPCS: 36415; 93005; 93306; 93351; 85379; 80061; 80053; 80048; 83615; 83735; 84443; 84484; 85025 ×2; 85610; 85730; 86140; 81001; 84703; 80306; 87086; 87077; 87186; 84145; 87636; 71046; 72192; 71275; G0378 ×3; J0696 ×3; Q9967; 83036